=== PATIENT | male | born 1990 | race Hispanic/Latino ===

== ENCOUNTER 2019-06-02 03:43 | Emergency (ER) | payer OTHER, SELFPAY ==
[2019-06-02] MEDS ORDERED: Dicyclomine 20 MG TAB ONE (04:31)
[2019-06-02] MEDS ORDERED: Loperamide HCl 2 MG CAP ONE (04:31)
[2019-06-02] MEDS ORDERED: Ondansetron ODT 4 MG TAB ONE (04:31)
== END 2019-06-02 05:07 ==
LOC: NAV ERS 03:43
DX: K52.9 Noninfective gastroenteritis and colitis, unspecified (principal)
CPT/HCPCS: 99284; Q0162